=== PATIENT | male | born 1945 | race Caucasian/White ===

== ENCOUNTER 2018-01-18 07:00 | Day surgery (SDC) | payer MEDICARE, BC ==
[2018-01-17 12:35] LABS: HEMATOCRIT 44.9 % (42.0-54.0); HEMOGLOBIN 15.9 g/dL (13.5-17.5); MCH 33.3 pg (26.0-34.0); MCHC 35.4 g/dL (31.0-37.0); MCV 94.1 fL (80.0-100.0); MEAN PLATELET VOLUME 9.8 fL (7.4-10.4); RBC 4.77 10x6/uL (4.20-6.10); RDW 13.2 % (11.5-14.5); WBC 6.8 10x3/uL (4.8-10.8)
[~2018-01-18] VITALS: Ht 176.5 cm; Wt 77.1 kg
--- NOTE | ~2018-01-18 | OP ---
PATIENT NAME: YOA PATTON MEDICAL RECORD: [id number] :43 LOCATION:[facility] ADMISSION DATE: SURGEON: SANJEEV CHONG DPM DATE OF OPERATION: 01/18/2018 PREOPERATIVE DIAGNOSIS: Neuroma, left third interspace. POSTOPERATIVE DIAGNOSIS: Neuroma, left third interspace. PROCEDURE: Neurectomy, left third interspace. ANESTHESIA: Local with IV sedation utilizing lidocaine and Marcaine plain, approximately 15 cc total around the third interspace of left foot as well as intraoperative lidocaine with epinephrine. HEMOSTASIS: Left ankle tourniquet at 250 mmHg. PREOPERATIVE DETAILS: The patient was taken to the OR and placed on the operating table in a supine position followed by induction of general anesthesia and infiltration of local anesthetic. The left extremity was then prepped and draped in usual aseptic technique followed by exsanguination and inflation of tourniquet. A 15-blade was used to create a 3 cm linear incision over the distal aspect of the left third interspace. The incision was deepened down through subcutaneous tissue through the intermetatarsal ligament and the neuroma was exposed in the wound retracting the metatarsals or spreading the metatarsals. Dissection of the nerve was performed. Dissection of its branches to the third and fourth toe as well as proximal in the interspace was performed and the neuroma was excised sharply and sent to pathology. At this time, the wound was injected with lidocaine with epinephrine. The tourniquet was deflated. Adequate hemostasis was noted and the wound was closed utilizing 2-0 Vicryl for the subcutaneous tissue and 4-0 Rapide for the subcutaneous tissue as well. The skin was closed with 4-0 Rapide in a subcuticular technique followed by Dermabond. Adaptic, 4 x 4 and Conform were used to dress the wound followed by Kerlix as well as Coban. Tourniquet again was deflated during the operative procedure. The patient tolerated the procedure well and left the OR with vital signs stable and vascular status at preoperative levels. The patient was transferred to recovery per anesthesia in stable condition. TRANSINT:[id number] Voice Confirmation ID: [id number] DOCUMENT ID: [id number] SANJEEV CHONG DPM at 0843 CC: [id number] DICTATION DATE: 01/18/18 1026 FURNITURE FABRICATOR: 01/18/18 1251 [facility] 01/18/18 [place] [id number] [facility] [place] [id number]
[~2018-01-18 07:00] MED LIST: ATIVAN1 MG PO; FISH OIL 1,0001 CA1 PO; MULTIPLE VITAMI1 TA1 PO
[2018-01-18 07:42] VITALS: BP 142/71; Ht 176.5 cm; Wt 77.1 kg
== END 2018-01-18 11:50 | disposition home or self-care (01) ==
LOC: D.OPS 07:00 → D.PAN 09:30 → D.OPS 11:50
PROVIDERS: Anesthesiology
DX: G57.82 Other specified mononeuropathies of left lower limb (principal); Z01.812 Encounter for preprocedural laboratory examination